=== PATIENT | male | born 1975 | race Caucasian/White ===

== ENCOUNTER 2020-09-08 08:56 | Inpatient (IN) | payer OTHER ==
[~2020-09-08] VITALS: Ht 182.9 cm; Wt 172.6 kg
[~2020-09-08 08:56] MED LIST: AUGMENTIN 875875 M1 PO; LISINOPRIL10 MG; NORCO 5-325 TA1 EACH PO
[2020-09-08 09:11] VITALS: BP 124/58
[2020-09-08] MEDS ORDERED: LISINOPRIL-HCT1 EAC2 PO (09:14)
[2020-09-08] MEDS ORDERED: SIMVASTATIN80 MG PO (09:14)
[2020-09-08] MEDS ORDERED: JARDIANCE10 MG PO (09:15)
[2020-09-08] MEDS ORDERED: XULTOPHY 100 UNI3 ML SUBQ (09:15)
[2020-09-08 10:09] LABS: ABSOLUTE LYMPHOCYTES 0.9 thou/uL (0.8-5.3); ABSOLUTE MONOCYTES 0.4 thou/uL (0.0-1.2); ABSOLUTE NEUTROPHILS 5.3 thou/uL (1.6-8.1); BASOPHILS 0.7 %; EOSINOPHILS 0.6 %; HEMATOCRIT 47.4 % (42.0-52.0); HEMOGLOBIN 16.2 gm/dL (14.0-18.0); LYMPHOCYTES 13.5 %; MCH 28.3 pg (26.0-34.0); MCHC 34.3 g/dL (28.0-37.0); MCV 82.6 fL (80.0-100.0); MONOCYTES 5.6 %; NUCLEATED RBCS 0 /100WBC; PLATELET COUNT* 163 thou/uL (150-400); POLYS 79.6 %; RBC 5.73 mil/uL (4.50-6.00); RDW-CV 14.3 % (10.5-14.5); WBC 6.6 thou/uL (4.0-11.0)
[2020-09-08 10:18] LABS: ANION GAP 9 mmol/L (7-16); BUN 22 mg/dL (7-18); CALCIUM 8.5 mg/dL (8.5-10.1); CHLORIDE 97 mmol/L (98-107); CO2 25 mmol/L (21-32); CREATININE 1.3 mg/dL (0.6-1.3); GLUCOSE 223 mg/dL (70-99); POTASSIUM 3.7 mmol/L (3.5-5.1); SODIUM 131 mmol/L (136-145)
[2020-09-08 10:23] LABS: APTT 25.2 Seconds (25.0-31.3); INR < 0.9; PROTIME 9.8 Seconds (9.20-11.50)
[2020-09-08 10:29] LABS: ALBUMIN 3.6 g/dL (3.4-5.0); ALKALINE PHOSPHATASE 41 U/L (46-116); NT-PRO BRAIN NAT PEPTIDE < 5 pg/mL (<300); SGOT 39 U/L (15-37); SGPT 60 U/L (30-65); TOTAL BILIRUBIN 0.5 mg/dL (<0.1-1.0); TOTAL PROTEIN 7.7 g/dL (6.4-8.2)
[2020-09-08 12:00] VITALS: BP 128/79
[2020-09-08 12:30] VITALS: BP 111/63
[2020-09-08 15:52] LABS: INFLUENZA A ANTIGEN Negative (Negative); INFLUENZA B ANTIGEN Negative (Negative)
[2020-09-08 20:30] VITALS: BP 105/59
--- NOTE | 2020-09-08 20:31 | NUR ---
Pt came to the floor around 1230. Pt remained A&O x4 for entire shift. Pt denies any pain. Pt states he just feels generally weak. Vital signs stable on 2L. 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 Pt notes his symptoms started on Monday 09/03. Pt complained of cough, Dr. Story notified, meds were ordered. Pt notes relief from cough drops.
[2020-09-09] VITALS (7 sets, daily range): BP systolic 102–120; BP diastolic 50–73
--- NOTE | 2020-09-09 04:56 | NUR ---
PT A&O X 4. ON 2L BY NC. AFEBRILE. DENIED PAIN. MEDS GIVEN ORDERED. UP INDEPENDENTLY IN THE ROOM. PT SWEATY AND A FAN GIVEN PER PT REQUEST. 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 WILL CONTINUE TO MONITOR.
--- NOTE | 2020-09-09 09:38 | EKG ---
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1975 Requested By: Abel Galvin Order Number: [id number] MD: Chace Ge Measurements Intervals [place] Rate: 85 P: 47 MI: 165 QRS: 79 QRSD: 104 T: 40 QT: 378 QTc: 450 Interpretive Statements Sinus rhythm Borderline low voltage, extremity leads No previous ECG available for comparison Electronically Signed On 09-09-2020 9:38:12 [employer]EL[employer] by Chace Ge [email or web address] <ELECTRONICALLY SIGNED> By: Chace Ge MD, [facility] 09/09/20 0938 1000 1000 Chace Ge MD, [facility] /EPI
[2020-09-09 12:04] LABS: CREATININE 1.3 mg/dL (0.6-1.3)
--- NOTE | 2020-09-09 19:09 | NUR ---
PT IS ALERT AND ORIENTEDX4 SR ON THE MONITOR BLOOD SUGARS ELEVATED PT IS "STARVING" ALL DAY PLEASANT AND COOPERATIVE THOUGH SOME SOA WHEN AMBULATING ON 2L NC SATS ARE GOOD AT 96 97% THOUGH UP IN THE CHAIR ALL DAY LS CLEAR AND DIMINISHED NONPROD COUGH NOTED CALL LIGHT IN REACH
[2020-09-10 05:10] VITALS: BP 119/74
--- NOTE | 2020-09-10 05:53 | NUR ---
ASSUMED PT CARE THIS NOC AT APPROX 1930. PT IS A/OX4. UP AD RADHA. VSS. PT HAS DM AND IS HYPERGLYCEMIC. BLOOD GLUCOSE WAS 399. PRESCRIBED INSULIN ADMINISTERED ORDERED. PT IS ON O2 AT 2L VIA NC. PT HAS A NON-PRODUCTIVE COUGH. O2 SAT IS 97%. PT HAS TWO IV'S IN THE [facility]. PT WAS GIVEN MEDICATIONS PRESCRIBED. 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 PT HAD CONCERNS ABOUT BEING ABLE TO SLEEP TONIGHT. PT WAS GIVEN PRESCRIBED MEDICATION TO HELP WITH SLEEP. PT HAS BEEN RESTING ALL NIGHT AND NO C/O VOICED. PT'S CALLED LOPEZ TO GET REPORT ON HER . PT'S WAS THANKFUL FOR REPORT AND STATED SHE WOULD CALL HIM LATER AND LET HIM REST.
[2020-09-10 06:29] LABS: HEMATOCRIT 40.8 % (42.0-52.0); MCH 27.8 pg (26.0-34.0); MCHC 34.2 g/dL (28.0-37.0); MCV 81.2 fL (80.0-100.0); RBC 5.02 mil/uL (4.50-6.00); RDW-CV 13.9 % (10.5-14.5); WBC 11.1 thou/uL (4.0-11.0)
[2020-09-10 06:40] LABS: ALBUMIN 3.1 g/dL (3.4-5.0); CALCIUM 8.4 mg/dL (8.5-10.1); CREATININE 1.2 mg/dL (0.6-1.3); MAGNESIUM 2.7 mg/dL (1.8-2.4); POTASSIUM 4.5 mmol/L (3.5-5.1); TOTAL BILIRUBIN 0.5 mg/dL (<0.1-1.0); TOTAL PROTEIN 6.4 g/dL (6.4-8.2)
[2020-09-10 08:30] VITALS: BP 136/74
[2020-09-10 12:00] VITALS: BP 105/60
[2020-09-10 16:00] VITALS: BP 125/72
[2020-09-10 20:00] VITALS: BP 111/59
--- NOTE | 2020-09-10 20:23 | NUR ---
I ASSUMED CARE OF THE PATIENT AT 0700. HE IS ALERT AND ORIENTED X4 AND IS UP AD RADHA. BED IS IN THE LOW LOCKED POSITION AND CALL LIGHT IS IN REACH. HOURLY ROUNDING IS COMPLETED AND PATIENT NEEDS ARE MET. PAIN IS MANAGED WITH PRN MEDS. HE IS FLAT AND SEEMS DEPRESSED. HE SAID HE DOESN'T LIKE THAT HE JUST DOESN'T FEEL RIGHT. OXYGEN WAS TITRATED DOWN AND SATURATION WAS 94% ON ROOM AT THE END OF MY SHIFT. HE REPOSITIONS HIMSELF. BLOOD GLUCOSE LEVELS ARE MONITORED AND CORRECTED WITH INSULIN. HE IS PROGRESSING TOWARDS HIS GOALS. WILL CONTINUE TO MONITOR.
[2020-09-11] VITALS: BP 92/45
--- NOTE | 2020-09-11 03:51 | NUR ---
ASSUMED PT CARE AT APPROX 1930. PT IS AWAKE AND ORIENTED X4. PT IS NOT IN DISTRESS, NO DESATURATIONS NOTED ON 1.5L OF O2/NC. 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 PT DENIES PAIN/DISCOMFORT. NO ACUTE CHANGES THIS SHIFT. CALL LIGHT WITHIN REACH. HOURLY ROUNDING DONE FOR PT SAFETY.
[2020-09-11 04:01] VITALS: BP 123/60
[2020-09-11 08:00] VITALS: BP 130/76
[2020-09-11 12:00] VITALS: BP 119/72
[2020-09-11] MEDS ORDERED: LEVOFLOXACIN750 MG PO (13:17)
[2020-09-11] MEDS ORDERED: HYDROCODONE-CH115 ML PO (13:17)
[2020-09-11] MEDS ORDERED: BENZONATATE100 MG PO (13:17)
[2020-09-11] MEDS ORDERED: DEXAMETHASONE1 MG PO (13:17)
[2020-09-11 15:02] VITALS: BP 119/72
--- NOTE | 2020-09-11 15:50 | NUR ---
PT A&OX4 VSS. PT UP AD RADHA IN ROOM. ISOLATION PRECAUTIONS MAINTAINED THIS SHIFT. IV TO RFA DC'D PRIOR TO PT LEAVING UNIT. PT REMAINS SINUS ON MONITOR, MOINTORING DC'D JUST PRIOR TO PT DEPARTING UNIT. PT SAT 94% ON ROOM AIR. RT ASESSED REST/EXERCISE AND PT DOES NOT REQUIRE O2 FOR HOME USE. PT REPORTED NON-PRODUCTIVE COUGH THIS SHIFT, MEDS ADMINISTERED ORDERED. PT ACCUCHECK, SLIDING SCALE ADMINISTERED INDICATED. PT DRESSED INDEPENDENTLY. PT LEAVES UNIT IN WITH ALL PERSONAL BELONGINGS. PT TRANSPORTED IN BY NURSING STAFF AND ASSISTED TO PRIVATE VEHICLE. PT STATES UNDERSTANDING OF DC INSTRUCITONS AND RX PROVIDED. PT EDUCATED REGARDING COVID PRECAUTIONS AND PRINTED MATERIALS INCLUDED IN DC PAPERWORK WELL.
== END 2020-09-11 16:00 | disposition home or self-care (01) | DRG 177 ==
LOC: M.ERS 08:56 → M.ORTHSURG 10:54 → M.TBA-ER 10:54 → M.ORTHSURG 12:16
PROVIDERS: Emergency Medicine Emergency Medical Services; ADMIT Internal Medicine; ATTEND Internal Medicine
PROC: XW033E5 Introduction of Remdesivir Anti-infective into Peripheral Vein, Percutaneous Approach, New Technology Group 5 (ICD-10-PCS; principal; 2020-09-08)
DX: U07.1 COVID-19 (principal); J96.01 Acute respiratory failure with hypoxia; J12.82 Pneumonia due to coronavirus disease 2019; I10 Essential (primary) hypertension; E11.65 Type 2 diabetes mellitus with hyperglycemia; Z79.4 Long term (current) use of insulin; Z79.899 Other long term (current) drug therapy

== ENCOUNTER → 2021-04-03 | Outpatient (CLI) | payer OTHER ==
[~2021-04-03] MED LIST changes: +BENZONATATE100 MG PO; +DEXAMETHASONE1 MG PO; +HYDROCODONE-CH115 ML PO; +JARDIANCE10 MG PO; +LEVOFLOXACIN750 MG PO; +LISINOPRIL-HCT1 EAC2 PO; +SIMVASTATIN80 MG PO; +XULTOPHY 100 UNI3 ML SUBQ
--- NOTE | 2021-04-03 15:00 | 2DMMODE ---
[place] [address] 2 D/M-MODE ECHOCARDIOGRAM Name: KENDELLTAYLA HAIR Room: [facility]#: [id number] Admission: 04/03/21 Attend Phys: Chace Ge MD Discharge: Date of : 79 Date of Service: 04/03/21 1500 Report #: [id number] THIS REPORT FOR: cc: Miladys Flaherty NP, Elizabeth NP Liston, Michael J. MD [facility] ~ APPROVED REPORT Study performed: 04/03/2021 12:43:02 EXAM: Comprehensive 2D, Doppler, and color-flow Echocardiogram Patient Location: Out-Patient BSA: 2.79 HR: 82 bpm BP: 128/78 mmHg Other Information Study Quality: Good Indications Hypertension/HDD 2D Dimensions IVSd: 10.37 (7-11mm) LVOT Diam: 22.07 (18-24mm) LVDd: 47.20 mm PWd: 9.08 (7-11mm) Ascending Ao: 33.46 (22-36mm) LVDs: 31.13 (25-40mm) Aortic Root: 35.40 mm Volumes Left Atrial Volume (Systole) LA ESV Index: 11.70 mL/m2 Aortic Valve AoV Peak Hardik.: 1.53 m/s AO Peak Gr.: 9.41 mmHg LVOT Max P.02 mmHg AO Mean Gr.: 4.67 mmHg LVOT Mean P.79 mmHg LVOT Max V: 1.23 m/s AO V2 VTI: 30.49 cm LVOT Mean V: 0.76 m/s MARIE (VTI): 2.97 cm2 LVOT V1 VTI: 23.65 cm Mitral Valve E/A Ratio: 1.19 [place] [address] 2 D/M-MODE ECHOCARDIOGRAM Name: TAYLA PEÑALOZA Room: [facility]#: [id number] Admission: 04/03/21 Attend Phys: Chace Ge MD Discharge: Date of : 79 Date of Service: 04/03/21 1500 Report #: [id number] MV Decel. Time: 254.85 ms MV E Max Hardik.: 0.79 m/s MV PHT: 73.91 ms MVA (PHT): 2.98 cm2 TDI E/Lateral E': 4.39 E/Medial E': 7.90 Medial E' Hardik.: 0.10 m/s Lateral E' Hardik.: 0.18 m/s Pulmonary Valve PV Peak Hardik.: 1.00 m/s PV Peak Gr.: 4.02 mmHg Left Ventricle The left ventricle is normal size. There is normal LV segmental wall motion. There is normal left ventricular wall thickness. Left ventricular systolic function is normal. LVEF is 55-60%. The left ventricular diastolic function is normal. Right Ventricle The right ventricle is normal size. The right ventricular systolic function is normal. Atria The left atrium size is normal. The right atrium size is normal. Aortic Valve The aortic valve is normal in structure. No aortic regurgitation is present. There is no aortic valvular stenosis. Mitral Valve The mitral valve is normal in structure. There is no mitral valve regurgitation noted. No evidence of mitral valve stenosis. Tricuspid Valve The tricuspid valve is normal in structure. There is no tricuspid valve regurgitation noted. Pulmonic Valve The pulmonary valve is normal in structure. There is no pulmonic valvular regurgitation. Great Vessels The aortic root is normal in size. IVC is normal in size and collapses >50% [place] [address] 2 D/M-MODE ECHOCARDIOGRAM Name: NESTORANDRZEJLAXMITAYLA Mathur Room: [facility]#: [id number] Admission: 04/03/21 Attend Phys: Chace Ge MD Discharge: Date of : 79 Date of Service: 04/03/21 1500 Report #: [id number] Pericardium There is no pericardial effusion. <Conclusion> The left ventricle is normal size. There is normal left ventricular wall thickness. Left ventricular systolic function is normal. LVEF is 55-60%. The left ventricular diastolic function is normal. IVC is normal in size and collapses >50% with inspiration. <ELECTRONICALLY SIGNED> By: Kb Lawler MD, FACC 04/03/21 1500 1500 1500 Kb Lawler MD, FACC /INF
== END ==
LOC: M.CRD 12:47
PROVIDERS: ATTEND Internal Medicine Cardiovascular Disease
DX: I10 Essential (primary) hypertension (principal)

== ENCOUNTER → 2021-08-29 | Outpatient (CLI) | payer OTHER | LOC: M.CT 09:44 | PROVIDERS: ATTEND Nurse Practitioner Family | DX: Z13.6 Encounter for screening for cardiovascular disorders (principal); I25.10 Atherosclerotic heart disease of native coronary artery without angina pectoris ==